=== PATIENT | female | born 1960 | race Caucasian/White ===

== ENCOUNTER 2016-09-27 07:14 | Emergency (ER) | payer OTHER ==
--- NOTE | 2016-09-27 07:27 | CPEKG ---
Heart Rate: 85 RR Interval: 706 P-R Interval: 136 QRSD Interval: 72 QT Interval: 372 QTC Interval: 443 P [place]: 55 QRS [place]: 20 T Wave [place]: 51 EKG Severity - NORMAL ECG - EKG Impression: SINUS RHYTHM Electronically Signed By: Marco A Reyes 27-Sep-2016 07:40:06
[2016-09-27] MEDS ORDERED: ASPIRIN 81 MG CHEWABLE TAB PO ONE (07:30)
[2016-09-27] MEDS ORDERED: NS 1,000 ML IV ONE (07:30)
[2016-09-27 07:31] VITALS: RESP 16; TEMP 97.9
--- NOTE | 2016-09-27 07:37 | EDPHY ---
H & P Stated Complaint: CHEST PAIN SINCE THU AFTER LIFTING ROCKS, WORSE LAST NIGHT Time Seen by Provider: 09/27/16 07:22 HPI/ROS: CHIEF COMPLAINT: CHEST PAIN HISTORY OF PRESENT ILLNESS: The patient is a 56-year-old female who comes to the emergency department complaining of 3 days chest pain. She states that 3 days ago she was lifting up a heavy cart and had sudden pain in her left pectoralis area. Initially it radiated to her back but that has gradually subsided. It does hurt worse with specific movements such as twisting. It does not hurt with deep inspiration. She does not feel short of breath. No diaphoresis. No nausea. Symptoms have waxed and waned but been constantly present. She does not have any history of cardiac disease. She does take hormones for menopause and she did travel to [place] last week. She denies leg pain or swelling. REVIEW OF SYSTEMS: Constitutional: denies: chills, fever, recent illness, recent injury EENTM: denies: blurred vision, double vision, nose congestion Respiratory: denies: cough, shortness of breath Cardiac: denies: chest pain, irregular heart rate, lightheadedness, palpitations Gastrointestinal/Abdominal: denies: abdominal pain, diarrhea, nausea, vomiting, blood streaked stools Genitourinary: denies: dysuria, frequency, hematuria, pain Musculoskeletal: See HPI Skin: denies: lesions, rash, jaundice, bruising Neurological: denies: headache, numbness, paresthesia, tingling, dizziness, weakness Hematologic/Lymphatic: denies: blood clots, easy bleeding, easy bruising Immunologic/allergic: denies: HIV/AIDS, transplant EXAM: GENERAL: Well-appearing, well-nourished and in no acute distress. HEAD: Atraumatic, normocephalic. EYES: Pupils equal round and reactive to light, extraocular movements intact, sclera anicteric, conjunctiva are normal. ENT: TMs normal, nares patent, oropharynx clear without exudates. Moist mucous membranes. NECK: Normal range of motion, supple without lymphadenopathy or JVD. LUNGS: Breath sounds clear to auscultation bilaterally and equal. No wheezes rales or rhonchi. HEART: Regular rate and rhythm without murmurs, rubs or gallops. ABDOMEN: Soft, nontender, normoactive bowel sounds. No guarding, no rebound. No masses appreciated. BACK: No CVA tenderness, no spinal tenderness, step-offs or deformities EXTREMITIES: Normal range of motion, no pitting or edema. No clubbing or cyanosis. NEUROLOGICAL: Cranial nerves II through XII grossly intact. Normal speech, normal gait. 5/5 strength, normal movement in all extremities, normal sensation PSYCH: Normal mood, normal affect. SKIN: Warm, dry, normal turgor, no visible rashes or lesions. Source: Patient Exam Limitations: No limitations - Medical/Surgical History Hx Asthma: No Hx Chronic Respiratory Disease: No Hx Diabetes: No Hx Cardiac Disease: No Hx Renal Disease: No Hx Cirrhosis: No Hx Alcoholism: No Other PMH: HYPOTHYROID, ASTHMA, - Family History Significant Family History: No pertinent family hx - Social History Smoking Status: Never smoked Alcohol Use: Sober Drug Use: None Constitutional: Initial Vital Signs Temperature (C) 36.6 C 09/27/16 07:27 Heart Rate 85 09/27/16 07:27 Respiratory Rate 16 09/27/16 07:27 Blood Pressure 124/91 H 09/27/16 07:27 O2 Sat (%) 95 09/27/16 07:27 O2 Delivery Mode Room Air Allergies/Adverse Reactions: No Known Allergies Allergy (Unverified 09/27/16 07:37) Home Medications: Medication Instructions Recorded Flonase 09/27/16 Levothyroxine 09/27/16 Qvar 09/27/16 Remafem 09/27/16 Medical Decision Making - Diagnostics EKG Interpretation: An EKG obtained and was read and documented in trace view. Please see trace view for full reading and report. Sinus rhythm, no acute ischemic changes Imaging Results: Imaging Impressions Chest X-Ray 09/27/16 07:30 Impression: No acute pulmonary disease. Imaging: I viewed and interpreted images myself ED Course/Re-evaluation: 8:40 a.m. we discussed the lab and x-ray results. The patient is relieved. She is currently symptom free. Her EKG is reassuring. Considering the duration of her symptoms these lab tests are reassuring. She declines further workup or testing at this time. She will follow up with her primary physician. Also her exam is more consistent with a musculoskeletal injury. Differential Diagnosis: Partial list of the Differential diagnosis considered include but were not limited to; chest wall pain, muscle strain, fracture and although unlikely based on the history and physical exam, I also considered PE, acute coronary disease, arrhythmia, pneumothorax, pneumonia, peptic ulcer disease, biliary disease. I discussed these differential diagnoses and the plan with the patient as well as the usual and expected course. The patient understands that the diagnosis is provisional and that in medicine we are not always correct and that further workup is often warranted. Usual and customary warnings were given. All of the patient's questions were answered. The patient was instructed to return to the emergency department should the symptoms at all worsen or return, otherwise to followup with the physician as we discussed. - Data Points Laboratory Results: Laboratory Results 09/27/16 07:49 09/27/16 07:49 09/27/16 09/27/16 09/27/16 08:10 07:49 07:49 WBC 7.41 10^3/uL 10^3/uL (3.80-9.50) RBC 4.51 10^6/uL 10^6/uL (4.18-5.33) Hgb 13.1 g/dL g/dL (12.6-16.3) Hct 38.8 % % (38.0-47.0) MCV 86.0 fL fL (81.5-99.8) MCH 29.0 pg pg (27.9-34.1) MCHC 33.8 g/dL g/dL (32.4-36.7) RDW 13.9 % % (11.5-15.2) Plt Count 254 10^3/uL 10^3/uL (150-400) MPV 9.7 fL fL (8.7-11.7) Neut % (Auto) 48.5 % % (39.3-74.2) Lymph % (Auto) 33.1 % % (15.0-45.0) Maverick % (Auto) 9.6 % % (4.5-13.0) Eos % (Auto) 8.1 % H % (0.6-7.6) Baso % (Auto) 0.4 % % (0.3-1.7) Nucleat RBC Rel Count 0.0 % % (0.0-0.2) Absolute Neuts (auto) 3.60 10^3/uL 10^3/uL (1.70-6.50) Absolute Lymphs (auto) 2.45 10^3/uL 10^3/uL (1.00-3.00) Absolute Monos (auto) 0.71 10^3/uL 10^3/uL (0.30-0.80) Absolute Eos (auto) 0.60 10^3/uL H 10^3/uL (0.03-0.40) Absolute Basos (auto) 0.03 10^3/uL 10^3/uL (0.02-0.10) Absolute Nucleated RBC 0.00 10^3/uL 10^3/uL (0-0.01) Immature Gran % 0.3 % % (0.0-1.1) Immature Gran # 0.02 10^3/uL 10^3/uL (0.00-0.10) D-Dimer < 0.27 ug/mLFEU ug/mLFEU (0.00-0.50) Sodium 142 mEq/L mEq/L (134-144) Potassium 4.5 mEq/L mEq/L (3.5-5.2) Chloride 103 mEq/L mEq/L (97-110) Carbon Dioxide 24 mEq/l mEq/l (22-31) Anion Gap 15 mEq/L mEq/L (8-16) BUN 20 mg/dL mg/dL (7-23) Creatinine 0.8 mg/dL mg/dL (0.6-1.0) Estimated GFR > 60 Glucose 90 mg/dL mg/dL (70-100) Calcium 9.5 mg/dL mg/dL (8.5-10.4) Total Bilirubin 0.6 mg/dL mg/dL (0.1-1.4) Conjugated Bilirubin 0.2 mg/dL mg/dL (0.0-0.5) Unconjugated Bilirubin 0.4 mg/dL mg/dL (0.0-1.1) AST 23 IU/L IU/L (14-46) ALT 28 IU/L IU/L (9-52) Alkaline Phosphatase 82 IU/L IU/L (38-126) Troponin I < 0.012 ng/mL ng/mL (0-0.034) Total Protein 8.2 g/dL g/dL (6.3-8.2) Albumin 4.2 g/dL g/dL (3.5-5.0) Lipase 96.0 IU/L IU/L (23-300) Medications Given: Discontinued Medications Aspirin (Aspirin) 324 mg PO EDNOW ONE Stop: 09/27/16 07:31 Last Admin: 09/27/16 07:45 Dose: 324 mg Sodium Chloride (Ns) 1,000 mls @ 0 mls/hr IV ONCE ONE; Wide Open PRN Reason: Protocol Stop: 09/27/16 07:31 Last Admin: 09/27/16 07:59 Dose: 1,000 mls Departure - Departure Disposition: Home, Routine, Self-Care Clinical Impression: Chest pain Qualifiers: Chest pain type: unspecified Qualified Code(s): R07.9 - Chest pain, unspecified Condition: Fair Instructions: Chest Pain (ED) Referrals: Mahi Shelby PA [Primary Care Provider] - As per Instructions
[2016-09-27 08:09] LABS: ALANINE AMINOTRANSFERASE 28 IU/L (9-52); ALBUMIN 4.2 g/dL (3.5-5.0); ALKALINE PHOSPHATASE 82 IU/L (38-126); ANION GAP 15 mEq/L (8-16); ASPARTATE AMINOTRANSFERASE 23 IU/L (14-46); BILIRUBIN,TOTAL 0.6 mg/dL (0.1-1.4); BILIRUBIN-CONJUGATED 0.2 mg/dL (0.0-0.5); BILIRUBIN-UNCONJUGATED 0.4 mg/dL (0.0-1.1); CALCIUM 9.5 mg/dL (8.5-10.4); CARBON DIOXIDE 24 mEq/l (22-31); CHLORIDE 103 mEq/L (97-110); CREATININE 0.8 mg/dL (0.6-1.0); GLOMERULAR FILTRATION RATE > 60; GLUCOSE 90 mg/dL (70-100); POTASSIUM 4.5 mEq/L (3.5-5.2); SODIUM 142 mEq/L (134-144); TOTAL PROTEIN 8.2 g/dL (6.3-8.2)
[2016-09-27 08:15] LABS: % IMMATURE GRANULYOCYTES 0.3 % (0.0-1.1); ABSOLUTE IMMATURE GRANULOCYTES 0.02 10^3/uL (0.00-0.10); ADD DIFF? NO; ADD MORPH? NO; ADD SCAN? NO; ATYPICAL LYMPHOCYTE FLAG 40 (0-99); FRAGMENT RBC FLAG 0 (0-99); HEMATOCRIT 38.8 % (38.0-47.0); HEMOGLOBIN 13.1 g/dL (12.6-16.3); LEFT SHIFT FLG 0 (0-99); LIPEMIA HEMOLYSIS FLAG 90 (0-99); MEAN CELL HEMOGLOBIN CONCENTR. 33.8 g/dL (32.4-36.7); MEAN PLATELET VOLUME 9.7 fL (8.7-11.7); PLATELET CLUMPS FLAG 0 (0-99); PLATELET COUNT 254 10^3/uL (150-400); RED BLOOD CELL COUNT 4.51 10^6/uL (4.18-5.33); RED CELL DISTRIBUTION WIDTH 13.9 % (11.5-15.2)
[2016-09-27 08:17] LABS: TROPONIN I < 0.012 ng/mL (0-0.034)
[2016-09-27 09:14] VITALS: BP 123/72; PULSE 76; O2SAT 92
== END 2016-09-27 09:12 | disposition home or self-care (01) ==
LOC: CED 07:14
DX: R07.9 Chest pain, unspecified (principal); J45.909 Unspecified asthma, uncomplicated
CPT/HCPCS: 71020-PO; 80048-PO; 80076-PO; 83690-PO; 84484-PO; 85025-PO; 85378-PO

== ENCOUNTER → 2017-03-23 | Outpatient (CLI) | payer OTHER | LOC: CIMAGING 14:46 | PROVIDERS: ATTEND Physician Assistant | DX: Z12.31 Encounter for screening mammogram for malignant neoplasm of breast (principal) | CPT/HCPCS: G0202 ==

== ENCOUNTER → 2017-04-08 | Outpatient (CLI) | payer OTHER | LOC: CIMAGING 13:07 | PROVIDERS: ATTEND Physician Assistant | DX: R92.8 Other abnormal and inconclusive findings on diagnostic imaging of breast (principal) | CPT/HCPCS: G0206 ==

== ENCOUNTER 2018-04-02 09:20 | Day surgery (SDC) | payer OTHER ==
--- NOTE | 2018-03-31 10:29 | GHP ---
DATE OF ADMISSION: 04/02/2018 DATE OF SURGERY: 04/02/2018 CHIEF COMPLAINT: Nipple inversion. HISTORY OF PRESENT ILLNESS: A 57-year-old woman who presented to the clinic with left nipple inversi on. Mammogram showed marked chronic prominent ducts in both the medial and lateral left anterior alison ast. It showed no abnormal or suspicious microcalcifications, masses, or architectural distortion. Left breast ultrasound showed benign dilated ducts behind the nipple with no intraductal nodules, mas s, or cystic abnormality. She denies any changes to her health since the time of her last visit. PAST MEDICAL HISTORY: Allergic rhinitis, asthma, dyslipidemia, hypothyroidism, vitamin D deficiency. PAST SURGICAL HISTORY: Right benign breast excisional biopsy. ALLERGIES: No known drug allergies. Seasonal allergies. FAMILY MEDICAL HISTORY: Significant for pancreatic cancer in her mother and heart disease in her pat ernal grandmother. SOCIAL HISTORY: She is a former smoker. Reports occasional alcohol use. No recreational drug use. REVIEW OF SYSTEMS: 10-point review of systems a 10-point review of systems negative, aside from HPI. PHYSICAL EXAMINATION: GENERAL: Well-developed, well-nourished woman in no acute distress. HEENT: Normocephalic, atraumatic. No hearing deficits. Pupils equal and round. No scleral icterus. Mucou s membranes moist. NECK: Trachea midline. RESPIRATORY: Clear to auscultation bilaterally. No inc reased breathing. CARDIOVASCULAR: No peripheral edema. Regular rate and rhythm. BREAST: Left nip ple inversion. No palpable breast masses bilaterally. LYMPHATIC: No cervical, supraclavicular or a xillary lymphadenopathy. PSYCH: Mood and affect normal. NEURO: Grossly intact. IMPRESSION/PLAN: 57-year-old woman with left nipple inversion. Mammogram and ultrasound were negati ve. She will undergo excisional breast biopsy to rule out malignancy and obtain a definitive diagnos is. We discussed risks of surgery, including, but not limited to heart attack, stroke, blood clots, or . We discussed risk of infection, bleeding, damage to surrounding structures, need for addit ional procedures, scarring. She understands risks and would like to proceed. She was additionally s een by Dr. Olga Jacobson who agrees with the above impression and plan. Anticipate this to be an outpa tient procedure. She will receive antibiotics on-call to the operating room. /[id number]/MODL
[2018-04-02] MEDS ORDERED: LIDOCAINE 1% 2 ML INJ ONE (09:43)
[2018-04-02] MEDS ORDERED: ceFAZolin 2 GM/DEXTROSE 100 ML IV ONE (09:45)
[2018-04-02] MEDS ORDERED: LIDOCAINE 1% 2 ML INJ ID PRN (09:46)
[2018-04-02] MEDS ORDERED: LR 1,000 ML IV ONE (09:46)
--- NOTE | 2018-04-02 10:20 | PDHPUP ---
History & Physical Update H&P update statement: This history and physical update is based on an assessment of the patient which was completed after admission or registration (within 24 hours), but prior to the surgery/procedure. H&P update: H&P reviewed & patient examined, no change in patient's condition since H&P completed
[2018-04-02] MEDS ORDERED: MIDAZOLAM 2 MG/2 ML VIAL IVP ONE (10:52)
--- NOTE | 2018-04-02 10:56 | PDANEPAE ---
ANE History of Present Illness left breast mass ANE Past Medical History - Cardiovascular History Hx Hypertension: No Hx Arrhythmias: No Hx Chest Pain: No Hx Coronary Artery / Peripheral Vascular Disease: No Hx CHF / Valvular Disease: No Hx Palpitations: No - Pulmonary History Hx COPD: No Hx Asthma/Reactive Airway Disease: Yes Hx Recent Upper Respiratory Infection: No Hx Oxygen in Use at Home: No Hx Sleep Apnea: No Sleep Apnea Screening Result - Last Documented: Negative Pulmonary History Comment: allergy triggered asthma - Neurologic History Hx Cerebrovascular Accident: No Hx Seizures: No Hx Dementia: No - Endocrine History Hx Diabetes: No Hypothyroid: No Hyperthyroid: No Obesity: no - Renal History Hx Renal Disorders: No - Liver History Hx Hepatic Disorders: No - Neurological & Psychiatric Hx Hx Neurological and Psychiatric Disorders: No - Cancer History Hx Cancer: No - Congenital Disorder History Hx Congenital Disorders: No - GI History GERD: no Hx Gastrointestinal Disorders: No - Other Health History Other Health History: post nasal drip. [place] - Chronic Pain History Chronic Pain: Yes (heel spurs,) - Surgical History Prior Surgeries: no surgeries in last 10 yrs ANE Review of Systems Review of Systems: - Exercise capacity Exercise capacity: >=4 METS METS (RN): 4 METS ANE Patient History - Allergies Allergies/Adverse Reactions: No Known Allergies Allergy (Unverified 09/27/16 07:37) - Home Medications Home medications: home medication list seen and reviewed Home Medications: Flonase 09/27/16 [Last Taken 02/01/18] Levothyroxine 09/27/16 [Last Taken 04/02/18] Qvar 09/27/16 [Last Taken 02/01/18] Remafem 09/27/16 [Last Taken 03/12/18] - NPO status NPO Status: no food or drink >8 hours NPO Since - Liquids (Date): 04/02/18 NPO Since - Liquids (Time): 01:00 NPO Since - Solids (Date): 04/01/18 NPO Since - Solids (Time): 21:00 - Anes Hx Anes Hx: no prior problems - Smoking Hx Smoking Status: Former smoker - Family Anes Hx Family Hx Anesthesia Complications: none ANE Labs/Vital Signs - Vital Signs Vital Signs: reviewed preoperatively; see RN documention for details Blood Pressure: 124/83 Heart Rate: 90 Respiratory Rate: 95 O2 Sat (%): 20 Height: 170.18 cm Weight: 77.111 kg ANE Physical Exam - Airway Neck exam: FROM Mallampati Score: Class 1 Mouth exam: normal dental/mouth exam - Pulmonary Pulmonary: no respiratory distress - Cardiovascular Cardiovascular: regular rate and rhythym - ASA Status ASA Status: II ANE Anesthesia Plan Anesthesia Plan: GA with mask
[2018-04-02] MEDS ORDERED: LIDOCAINE 1% 300 MG/30 ML SDV ONE (11:20)
[2018-04-02] MEDS ORDERED: BUPIVACAINE 0.5% 30 ML SDV ONE (11:20)
[2018-04-02] MEDS ORDERED: MIDAZOLAM 2 MG/2 ML VIAL ONE (11:23)
[2018-04-02] MEDS ORDERED: PROPOFOL/EMULSION 500 MG/50 ML BOTTLE IV ONE (11:31)
[2018-04-02] MEDS ORDERED: fentaNYL 100 MCG/2 ML INJ ONE (11:56)
[2018-04-02] MEDS ORDERED: ONDANSETRON 4 MG/2 ML VIAL ONE (11:59)
[2018-04-02] MEDS ORDERED: DEXAMETHASONE 4 MG/ML VIAL ONE ×2 (11:59)
--- NOTE | 2018-04-02 12:07 | POSTOPPROG ---
Post Op Note Date of Operation: 04/02/18 Surgeon: Olga Jacobson Business Proposal Rep: benjie Anesthesiologist: edna Anesthesia: IV Sedation Pre-op Diagnosis: L nipple inversion Post-op Diagnosis: same Indication: 57 yo with nipple inversion Procedure: L excisional breast biopsy Findings: scar Inf/Abcess present in the surg proc area at time of surgery?: No Specimen(s): nipple pad
[2018-04-02] MEDS ORDERED: ACETAMINOPHEN 500 MG TAB PO PRN (12:12)
[2018-04-02] MEDS ORDERED: HYDROmorphONE/DILAUDID 2 MG/ML INJ IVP PRN (12:12)
[2018-04-02] MEDS ORDERED: LR 500 ML IV PRN (12:12)
[2018-04-02] MEDS ORDERED: MEPERIDINE 25 MG/0.5 ML AMP IVP PRN (12:12)
[2018-04-02] MEDS ORDERED: PROMETHAZINE HCL 25 MG/ML INJ IVP PRN (12:12)
[2018-04-02] MEDS ORDERED: ALBUTEROL 3 ML DEYVIAL IH PRN (12:12)
[2018-04-02] MEDS ORDERED: NALOXONE HCL 0.4 MG/ML INJ IVP PRN (12:12)
[2018-04-02] MEDS ORDERED: METOCLOPRAMIDE 10 MG/2 ML VIAL IVP PRN (12:12)
[2018-04-02] MEDS ORDERED: fentaNYL 100 MCG/2 ML INJ IVP PRN (12:12)
[2018-04-02] MEDS ORDERED: oxyCODONE IR 5 MG TAB PO PRN (12:12)
[2018-04-02] MEDS ORDERED: LABETALOL HCL 20 MG/4 ML INJ IVP PRN (12:12)
--- NOTE | 2018-04-02 12:28 | POSTANESTH ---
Post Anesthetic Evaluation Cardiovascular Status: Normal, Stable Respiratory Status: Normal, Stable Level of Consciousness/Mental Status: Can Participate in Eval Pain Control: Adequate, Prn Tx Ordered Nausea/Vomiting Control: Adequate, Prn Tx Ordered Complications Possibly Related to Anesthesia: None Noted
--- NOTE | 2018-04-02 12:41 | GOP ---
DATE OF OPERATION: 04/02/2018 SURGEON: Olga Jacobson MD GENERAL MANAGER [employer] DE[employer]: Idalia Morgan, PAC. ANESTHESIA: Monitored anesthesia care with IV sedation. ANESTHESIOLOGIST: Manohar Madrigal MD. PREOPERATIVE DIAGNOSIS: Left nipple inversion. POSTOPERATIVE DIAGNOSIS: Left nipple inversion. PROCEDURE PERFORMED: Excisional biopsy, left breast. FINDINGS: Inverted nipple and scar tissue underneath the nipple. SPECIMENS: Left nipple pad for permanent. ESTIMATED BLOOD LOSS: 5 cc. INDICATIONS: The patient is a 57-year-old woman who had left nipple inversion without mammographic o r ultrasound evidence of malignancy. DESCRIPTION OF PROCEDURE: Patient was brought into the operating room, placed supine on the table, a nd monitored anesthesia care with IV sedation was performed. Her left breast was prepped and draped in the usual sterile fashion. I infiltrated the area with 0.5% Marcaine mixed with 1% lidocaine. I made an infra-areolar incision. I elevated the tissue away from the nipple. There was some scarring in this area, which I grasped with an Allis, and was submitted to Pathology for permanent. Hemostas is was achieved. The wound was closed with 3-0 Vicryl, followed by 4-0 Monocryl. Mastisol, Steri-St rips, sterile dressing applied. She was awakened in the operating room, transferred to PACU in stabl e condition. /[id number]/MODL
[2018-04-02 13:04] VITALS: BP 108/64
== END 2018-04-02 13:16 | disposition home or self-care (01) ==
LOC: FSGY 09:20
PROVIDERS: ATTEND Surgery
PROC: 0HBU0ZZ Excision of Left Breast, Open Approach (ICD-10-PCS; principal; 2018-04-02 11:00)
DX: D24.2 Benign neoplasm of left breast (principal); N64.53 Retraction of nipple; J45.909 Unspecified asthma, uncomplicated; E78.5 Hyperlipidemia, unspecified; E03.9 Hypothyroidism, unspecified; E55.9 Vitamin D deficiency, unspecified; Z87.891 Personal history of nicotine dependence
CPT/HCPCS: J0690; J1100; J2250; J2405; J2704; J3010